=== PATIENT | female | born 1955 | race Caucasian/White ===

== ENCOUNTER → 2020-12-17 | Outpatient (CLI) | payer MEDICARE, OTHER ==
[~2020-12-17] MED LIST: ALDACTONE25 MG PO; AMBIEN10 MG PO; AMLODIPINE BESYL5 MG PO; ASPIRIN EC81 MG PO; B-12500 MCG PO; BACLOFEN10 MG PO; CLIMARA1 EAC1 TOP; COREG 12.5MG12.5 MG PO; COREG25 MG PO; CRESTOR40 MG PO; CYMBALTA30 MG PO; CYMBALTA60 MG PO; ENTRESTO 24 MG1 EACH PO; FISH OIL 1,2001 EACH PO; GLUCOPHAGE500 MG PO; GLUCOTROL XL5 MG PO; ISOSORBIDE MONO30 MG PO; LASIX40 MG PO; NASACORT16.9 ML; PERCOCET 5-3251 EACH PO; PLAVIX75 MG PO; PROAIR HFA8.5 GM INH; PROGESTERONE100 MG PO; PROTONIX40 MG PO; REQUIP1 MG PO; SKELAXIN TAB 8800 MG PO; THERAGRAN TAB1 EA PO; VISTARIL25 MG PO; WELLBUTRIN 100100 MG PO; WELLBUTRIN SR200 MG PO; ZESTRIL10 MG PO; ZTLIDO1 EACH TP
== END ==
LOC: HEART 5 12-10 11:30
DX: I50.22 Chronic systolic (congestive) heart failure (principal); I08.0 Rheumatic disorders of both mitral and aortic valves
CPT/HCPCS: 93306